=== PATIENT | male | born 1995 | race Caucasian/White ===

== ENCOUNTER 2019-06-07 06:20 | Emergency (ER) | payer SELFPAY ==
[~2019-06-07] VITALS: Ht 170.2 cm; Wt 63.5 kg
[2019-06-07 06:32] VITALS: BP 148/85
[2019-06-07] MEDS ORDERED: ACETAMINOPHEN ES 500 MG TABLET ONE (06:47)
[2019-06-07] MEDS ORDERED: ACETAMINOPHEN ES 500 MG TABLET PO ONE (07:00)
== END 2019-06-07 06:51 | disposition home or self-care (01) ==
LOC: ER 06:29
DX: K02.9 Dental caries, unspecified (principal); K05.10 Chronic gingivitis, plaque induced